=== PATIENT | female | born 1970 | race Two or more races ===

== ENCOUNTER 2021-11-22 16:45 | Emergency (ER) | payer MEDICAID ==
[~2021-11-22] VITALS: Ht 165.1 cm; Wt 85.0 kg
[2021-11-22 17:16] VITALS: BP 155/86
[2021-11-22] MEDS ORDERED: proCHLORperazine 10 MG/2 ml inj IV ONE (21:20)
[2021-11-22] MEDS ORDERED: ketorolac trometh. 30mg/ml inj. IV ONE (21:20)
[2021-11-22] MEDS ORDERED: normal saline 1000ml 1,000 ML IV ONE (21:20)
[2021-11-22] MEDS ORDERED: diphenhydrAMINE 50 mg/ml inj IV ONE (21:20)
== END 2021-11-23 01:41 | disposition left against medical advice (07) ==
LOC: ER 16:46
DX: G43.909 Migraine, unspecified, not intractable, without status migrainosus (principal); R11.0 Nausea; Z88.0 Allergy status to penicillin
CPT/HCPCS: 99281

== ENCOUNTER 2024-07-13 06:10 | Outpatient (CLI) | payer MEDICAID | END 2024-07-13 23:59 | disposition home or self-care (01) | LOC: MRI02 06:10 | PROVIDERS: ATTEND Nurse Practitioner Family | DX: M47.812 Spondylosis without myelopathy or radiculopathy, cervical region (principal); M48.02 Spinal stenosis, cervical region; M25.78 Osteophyte, vertebrae; M25.531 Pain in right wrist; M65.88 Other synovitis and tenosynovitis, other site; R60.9 Edema, unspecified; R20.2 Paresthesia of skin | CPT/HCPCS: 72141; 73221 ==

== ENCOUNTER 2025-04-07 09:16 | Emergency (ER) | payer MEDICAID ==
[~2025-04-07] VITALS: Ht 165.1 cm; Wt 72.7 kg
[2025-04-07 09:32] VITALS: BP 131/92; PULSE 96; RESP 16; TEMP 97.5; O2SAT 100
== END 2025-04-07 10:46 | disposition left against medical advice (07) ==
LOC: ER 09:17
DX: M54.2 Cervicalgia (principal); Z53.21 Procedure and treatment not carried out due to patient leaving prior to being seen by health care provider; Z88.0 Allergy status to penicillin

== ENCOUNTER 2025-07-03 10:11 | Outpatient (CLI) | payer MEDICAID ==
--- NOTE | 2025-07-03 20:44 | RADIOLOGY REPORT ---
PROCEDURE: MR MRI LUMBAR SPINE Indication: [facility] INTVRT DISC DEGEN, LUMBOSACR W DISCOG BCK LW EXTRM PN COMPARISON: None TECHNIQUE: Multiplanar multisequence images of the the lumbar spine are obtained. FINDINGS: For the purpose of this examination, there are 5 lumbar vertebral body types counting from the lumbos acral junction. The lumbar vertebral body heights are maintained. There is ankylosis of the L4 and L5 vertebral cayden s. Moderate multilevel disc space narrowing and desiccation. No abnormal marrow edema. Alignment gr ossly preserved. Conus terminates at the level of the L2 vertebral body level. T12-L1: No spinal canal, neural foraminal stenosis. Mild facet and flavum hypertrophy. L1-2: Small disc protrusion. Mild facet and flavum hypertrophy. No spinal canal stenosis. No signifi cant neural foraminal stenosis. L2-3: 3 mm disc protrusion. Mild facet and flavum hypertrophy. No spinal canal stenosis. Mild bilat eral neural foraminal stenosis. L3-4: 3 mm disc protrusion. Moderate facet and flavum hypertrophy. Thecal sac measures 7 mm AP. Mod erate spinal canal stenosis. Moderate bilateral neural foraminal stenosis. L4-5: No spinal canal stenosis. Moderate facet and flavum hypertrophy. [id number] bilateral n eural foraminal stenosis. L5-S1: 2 mm disc protrusion. Moderate facet and flavum hypertrophy. No spinal canal stenosis. Modera te to severe left and moderate right neural foraminal stenosis. IMPRESSION: Moderate lumbar degenerative disc disease. 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 Moderate spinal canal stenosis L3-4. Multilevel neural foraminal stenosis as described most pronounced at L3-4, L4-5 and L5-S1
== END 2025-07-03 23:59 | disposition home or self-care (01) ==
LOC: MRI02 10:11
PROVIDERS: ATTEND Nurse Practitioner Family
DX: M51.27 Other intervertebral disc displacement, lumbosacral region (principal); M47.817 Spondylosis without myelopathy or radiculopathy, lumbosacral region; M48.07 Spinal stenosis, lumbosacral region
CPT/HCPCS: 72148